=== PATIENT | male | born 1935 | race Caucasian/White ===

== ENCOUNTER 2017-04-22 18:41 | Emergency (ER) | payer MEDICARE, OTHER ==
--- NOTE | 2017-04-22 18:58 | ED Physician Chart ---
ED Chief Complaint/HPI - Patient Information Date Seen:: 04/22/17 Time Seen:: 18:45 Chief Complaint:: aggressive behavior History of Present Illness:: Patient exhibiting aggressive behavior including striking others and walking around naked at his extended care facility. Also has been refusing medications. Abscesses on the patient's had are seen daily by visiting nurse. Historian:: Patient, Other (bark spudder accompanying patient) Review:: Nurse's Note Reviewed ED Review of Systems - Review of Systems General/Constitutional: No fever, No chills Skin: Skin lesions Head: No headache Eyes: No loss of vision ENT: No earache Neck: No neck pain, No swelling Cardio Vascular: No chest pain, No palpitations Pulmonary: No SOB GI: No nausea, No vomiting, No diarrhea G/U: No dysuria, No hematuria Musculoskeletal: No bone or joint pain Endocrine: No polyuria, No polydipsia Psychiatric: Prior psych history Hematopoietic: No bruising Allergic/Immuno: No urticaria Neurological: No syncope ED Past Medical History - Past Medical History Past Medical History: Seizures, Thyroid disorder, Other (Alzheimer's disease; psychosis; schizophrenia; hypothyroidism; rheumatoid arthritis) Family History: Other (not available) Social History: Non Smoker, No Alcohol, Care Facility Surgical History: None Psychiatricy History: Schizophrenia Medication: Reviewed ED Physical Exam - Physical Examination General/Constitutional: Well-developed, well-nourished, Alert Other Gen/Cons comments:: Alert and oriented to the correct month and year Other Head comments:: 2 cm right temporal and 1 cm left temporal bandaged abscesses Eyes: Lids, conjuctiva normal, PERRL Other Skin comments:: see under head ENMT: External ears, nose nl, TM canals nl Other ENMT comments:: Few lower teeth present; no upper teeth Neck: No nuchal rigidity Respiratory: Nl effort/Exclusion, Clear to Auscultation Cardio Vascular: RRR, No murmur, gallop, rubs, NL S1 S2 GI: No tenderness/rebounding/guarding, No organomegaly Extremities: No tenderness or effusion Neuro/Psych: No focal deficits Misc: No paraspinal tenderness ED Assessment - Assessment General Assessment: Patient doesn't qualify to be admitted to our [facility] so he will be discharged. Abscesses are currently under treatment. ED Septic Shock - . Is Septic Shock (SBP<90, OR Lactate>4 mmol\L) present?: No ED Reassessment (Disposition) - Reassessment Reassessment Condition:: Unchanged - Diagnosis Diagnosis:: Schizophrenia; aggressive behavior; two abscesses head - Aftercare/Follow up Instructions Aftercare/Follow-Up Instructions:: Refer to Discharge Instructions - Patient Disposition Discharge/Transfer:: [facility] SN[facility] Condition at Disposition:: Stable, Unchanged
== END 2017-04-22 19:35 ==
LOC: ER 18:41
DX: F20.9 Schizophrenia, unspecified (principal); F91.1 Conduct disorder, childhood-onset type; L02.811 Cutaneous abscess of head [any part, except face]; E07.9 Disorder of thyroid, unspecified
CPT/HCPCS: Z7502